=== PATIENT | male | born 1995 | race Two or more races ===

== ENCOUNTER 2024-09-11 19:59 | Emergency (ER) | payer MEDICAID, OTHER ==
[~2024-09-11] VITALS: Ht 172.7 cm; Wt 72.6 kg
[2024-09-11] MEDS ORDERED: KETOROLAC TROMETHAMINE 15 MG/ML VIAL ONE (20:39)
[2024-09-11] MEDS: KETOROLAC TROMETHAMINE 15 MG/ML VIAL IM ONE (20:44)
[2024-09-11] MEDS ORDERED: ACET-868 PO (20:46)
[2024-09-11] MEDS ORDERED: IBUP-1953 PO (20:46)
[2024-09-11 21:14] VITALS: BP 148/94; TEMP 98.5; O2SAT 100
== END 2024-09-11 21:08 | disposition home or self-care (01) ==
LOC: ER 20:01
DX: K02.9 Dental caries, unspecified (principal); F32.A Depression, unspecified
CPT/HCPCS: 99283; 96372; J1885